=== PATIENT | male | born 1975 | race Caucasian/White ===

== ENCOUNTER 2022-06-08 03:29 | Emergency (ER) | payer OTHER ==
[~2022-06-08] VITALS: Ht 170.2 cm; Wt 93.0 kg
[2022-06-08] MEDS ORDERED: LISINOPRIL-HCT1 EAC2 PO (03:41)
--- NOTE | 2022-06-10 23:06 | EKG ---
[facility] [address] [facility] [place] [address] Signed Normal sinus rhythm Left ventricular hypertrophy with repolarization abnormality ( R in aVL ) Abnormal ECG No previous ECGs available Confirmed by Ivory Cleary MD () on 06/10/2022 11:06:03 PM Electronically Signed By: IVORY CLEARY MD 06/10/22 [id number] PATIENT NAME: RADHIKA TOMAS Electrocardiogram DATE OF : 79 PHYSICIAN: IVORY CLEARY MD REPORT #: [id number] REPORT IS CONFIDENTIAL AND NOT TO BE RELEASED WITHOUT AUTHORIZATION
== END 2022-06-08 05:28 | disposition home or self-care (01) ==
LOC: ED 03:29
DX: G45.9 Transient cerebral ischemic attack, unspecified (principal); I10 Essential (primary) hypertension; Z79.899 Other long term (current) drug therapy
CPT/HCPCS: 36415; 70450; 70496; 70498; 71045; 80053; 85025; 85610; 85730; 93005; 93010; 99284-25; A9270; Q9967

== ENCOUNTER 2024-06-09 09:18 | Emergency (ER) | payer OTHER ==
[~2024-06-09] VITALS: Ht 170.2 cm; Wt 94.1 kg
[~2024-06-09 09:18] MED LIST: LISINOPRIL-HCT1 EAC2 PO
[2024-06-09 09:39] LABS: BASOPHILS 1.5 % (0-2); EOSINOPHILS 2.8 % (0-6); HEMATOCRIT 49.9 % (35.0-50.0); HEMOGLOBIN 17.5 g/dL (12.0-18.0); LYMPHOCYTES 39.9 % (24-44); MCH 32.2 (27-36); MCHC 35.1 g/dl (30-36); MCV 91.6 fl (81-99); MONOCYTES 8.9 % (0-12); NEUTROPHILS 46.9 % (39-80); PLATELET COUNT 175 K/uL (140-440); RBC 5.45 M/ul (4.3-5.7); RDW 13.1 (10.5-15.0)
[2024-06-09 09:48] LABS: INR 0.91 (0.80-1.30); PROTIME 11.8 Sec (11.2-14.2)
[2024-06-09 09:54] LABS: ALBUMIN 3.5 g/dL (3.4-5.0); ALBUMIN/GLOBULIN RATIO 1.13 (1.1-2.4); ANION GAP 9.9 (7-21); BILIRUBIN, TOTAL 0.8 ng/dL (0.2-1.0); BUN/CREATININE RATIO 11.65 (6.0-28.6); CALCIUM 8.6 mg/dL (8.5-10.1); CREATININE, SERUM 1.03 mg/dL (0.70-1.30); POTASSIUM 3.9 mmol/L (3.5-5.1); PROTEIN, TOTAL 6.6 g/dL (6.4-8.2)
[2024-06-09] MEDS ORDERED: PENICILLIN V P500 MG PO (13:36)
[2024-06-09 13:43] VITALS: BP 133/102
--- NOTE | 2024-06-10 19:41 | EKG ---
[facility] [address] [facility] [place] [address] Signed Normal sinus rhythm Minimal voltage criteria for LVH, may be normal variant ( R in aVL ) Nonspecific T wave abnormality Abnormal ECG When compared with ECG of 08-JUN-2022 04:03, T wave inversion no longer evident in Lateral leads Confirmed by Dimitri Swanson MD ([id number]) on 06/10/2024 7:41:42 PM Electronically Signed By: DIMITRI SWANSON MD 06/10/241940 PATIENT NAME: TOMASRADHIKA Electrocardiogram DATE OF : 79 PHYSICIAN: DIMITRI SWANSON MD REPORT #: [id number] REPORT IS CONFIDENTIAL AND NOT TO BE RELEASED WITHOUT AUTHORIZATION
== END 2024-06-09 13:45 | disposition home or self-care (01) ==
LOC: ED 09:18
PROVIDERS: Emergency Medicine
DX: R20.0 Anesthesia of skin (principal); R20.2 Paresthesia of skin; I10 Essential (primary) hypertension; Z86.73 Personal history of transient ischemic attack (TIA), and cerebral infarction without residual deficits; Z79.899 Other long term (current) drug therapy
CPT/HCPCS: 36415; 70450; 70496; 70498; 71045; 71260; 74177; 80053; 85025; 85610; 85730; 93005; 93010; 99284-25; Q9967